=== PATIENT | male | born 2005 | race Caucasian/White ===

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

== ENCOUNTER 2024-07-13 10:03 | Emergency (ER) | payer OTHER, SELFPAY ==
--- NOTE | ~2024-07-13 | US_ITS ---
TESTICULAR ULTRASOUND (Doppler ultrasound interrogation techniques used as needed for this exam.) Ordering provider: Park Castellanos III, DO History: . pain . Comparison: None. FINDINGS: TESTICLES: Normal in size. The right measures 3.7x 2.5x 2.7 cm and the left measures 3.7x 2.1x 2.8 cm . Normal echogenicity bilaterally without mass lesion. Normal Doppler flow bilaterally. Appendix nestor tis is seen in the right side measuring 0.6 x 0.7 x 0.5 cm. EPIDIDYMIDES: Normal in size. The right measures 1.2 cm and the left 1.2 cm. Normal echogenicity bila terally. Both demonstrate normal Doppler flow. Cyst is seen in the right epididymis measuring 0.4 cm. HYDROCELE: None. VARICOCELE: None. OTHER ABNORMALITY: None seen. IMPRESSION: Right epididymal cyst. Otherwise, normal testicular ultrasound. Reviewed, dictated and finalized at location A. 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
[2024-07-13 10:15] VITALS: BP 160/98; PULSE 81; RESP 16; TEMP 36.8; O2SAT 100
[2024-07-13 11:12] VITALS: BP 125/75; PULSE 98; RESP 16; TEMP 36.9; O2SAT 100
[2024-07-13 11:19] LABS: Add Urine Microscopic? NO; Appearance Urine Clear (Clear); Bilirubin Urine Negative (Negative); Blood Urine Negative (Negative); Color Urine Yellow (Yellow); Glucose Urine UA Negative (Negative); Ketones Urine Negative (Negative); Leukocyte Esterase Ur Negative LEU/UL (Negative); Nitrate Urine Negative (Negative); Protein Urine Negative (Negative); Specific Grav Ur 1.009 (1.001-1.035); Urobilinogen Urine 0.2 mg/dL (<2.0)
--- NOTE | 2024-07-13 12:09 | ED_ITS ---
HPI - Male Genitourinary General Chief complaint: Urogenital-Male Stated complaint: testicular pain Time Seen by Provider: 07/13/24 10:27 History of Present Illness HPI Narrative: 18 y/o male presents with right testicular pain since this morning. patient denies trauma or injury to the groin. patient denies urinary symptoms, penile discharge or chance of STD's. patient has no other complaints. Onset (ago): hour(s) (5) Related Data Allergies Allergy/AdvReac Type Severity Reaction Status Date / Time amoxicillin Allergy Unknown Rash Verified 07/13/24 10:03 Review of Systems Review of Systems: All systems reviewed & are unremarkable except as noted in HPI and below Genitourinary: Genitourinary: Reports testicular pain PMFSH Past Medical History Medical History Hx of migraines Surgical History Surgical History No history of previous surgery Family History Family History Mother FH: migraines Grandparent Breast cancer Father Hypertension Social History Social History Smoking status: Never smoker Alcohol intake: never Substance use: current Substance use type: marijuana Living arrangements: with family Occupation/Education: student Gender identity (if verbalized by the patient): Male Exam Const: General: healthy appearing and no acute distress HENMT: Head: normal to inspection Eyes: Conjunctivae: conjunctivae normal Neck: Neck: normal visual inspection Chest: Chest palpation & inspection: normal inspection of the chest Resp: Effort & Inspection: normal respiratory effort Cardio: Rate: regular rate GI: GI Palp: Yes Soft to palpation : Other: patient already had US resulted prior to exam. patient denies any palpable mass or visiable issue Back/Spine/Pelvis: Back: no CVA tenderness Skin: General skin exam: normal color Neuro: General: patient oriented x3 Extrem: General: normal to inspection Psych: Mental Status: mental status grossly normal Course Course Emergency Course: patient had US of testicular that showed epididymal cyst. UA was negative Vital Signs Vital signs: Vital Signs Temperature 36.8 C 07/13/24 10:15 Pulse Rate 81 07/13/24 10:15 Respiratory Rate 16 07/13/24 10:15 Blood Pressure 160/98 H 07/13/24 10:15 Pulse Oximetry 100 07/13/24 10:15 Temperature 36.9 C 07/13/24 11:12 Pulse Rate 98 07/13/24 11:12 Respiratory Rate 16 07/13/24 11:12 Blood Pressure 125/75 07/13/24 11:12 Pulse Oximetry 100 07/13/24 11:12 MDM - Male Genitourinary MDM Narrative Medical decision making narrative: patient educated of epididymal cyst and gave urology referral as needed Lab Data Labs: Lab Results 07/13/24 Range/Units 11:10 Urine Color Yellow (Yellow) Urine Appearance Clear (Clear) Urine pH 7.0 (5.0-9.0) Ur Specific [place] 1.009 (1.001-1.035) Urine Protein Negative (Negative) mg/dL Urine Glucose (UA) Negative (Negative) mg/dL Urine Ketones Negative (Negative) mg/dL Ur Blood (Man) Negative (Negative) Urine Nitrate Negative (Negative) Urine Bilirubin Negative (Negative) Urine Urobilinogen 0.2 (<2.0) mg/dL Leukocyte Esterase Rfl Negative (Negative) ANTIONE/UL Imaging Data Radiologist's impression: small epididymal cyst to right testicle Discharge Plan Discharge Clinical Impression: Cyst of epididymis Patient Disposition: Home, Self-Care Condition: Stable Instructions: Antibiotic Form, Spermatocele (ED) Additional Instructions: TAKE NSAIDS FOR PAIN FOLLOW-UP WITH UROLOGIST NEEDED RETURN FOR WORSENING SYMPTOMS Patient Language: Armenian Follow-up/Referrals: Prabhu James MD [Physician] - ( NEEDED) Time of Disposition: 12:07
--- OUTSIDE RECORDS SUMMARY | 2024-07-20 15:20 | XMS_ITS | Encounter Summary ---
Author Organization [facility] Address [address] [place] [address] Care Team Providers Care Rehab Assistant Name Role Phone Beverly Louis MD Primary Care Provider [phone] Reason for Visit * Reason Comments Testicle Pain Started this morning . Hurts more on left. Walking is painful. Testicles look normal. Does not notice any change in size. Encounter Details Date Type Department Care Team (Late st Contact Info) Description 07/13/2024 9:15 AM MANAGEMENT EXPERT Office Visit [facility] Care at [address] [address] Talita Ernandez, DOOR CLAMP OPERATOR [address] [place] [address] [address] [place] [address] Testicular pain, left (Primary Dx) Social History Tobacco Use Types Packs/Day Years Used Date Smoking Tobacco: Never Smokeless Tobacco: Never Sex and Gender Information Value Date Recorded Sex Assigned at Not on file Legal Sex Male 1:41 AM MANAGEMENT EXPERT Gender Identity Not on file Sexual Orientation Not on file documented as of this encounter Last Filed Vital Signs Vital Sign Reading Time Taken Comments Blood Pressure 130/87 07/13/2024 9:05 AM MANAGEMENT EXPERT Pulse 71 07/13/2024 9:05 AM MANAGEMENT EXPERT Temperature 36.9 ??C (98.5 ??F) 07/13/2024 9:05 AM CS T Respiratory Rate 20 07/13/2024 9:05 AM MANAGEMENT EXPERT Oxygen Saturation 99% 07/13/2024 9:05 AM MANAGEMENT EXPERT Inhaled Oxygen Concentration - - Weight 76.4 kg (168 lb 8 oz) 07/13/2024 9:05 AM MANAGEMENT EXPERT Height - - Body Mass Index - - documented in this encounter Progress Notes * Talita Ernandez, DOOR CLAMP OPERATOR - 07/13/2024 9:15 AM CST Images from the original note were not included. Subjective/Objective Patient ID: Thong Parikh is a 18 y.o. male. Chief Complaint Testicle Pain (Started this morning. Hurts more on left. Walking is painful. Testicles look normal.Does not notice any change in size. ) Patient presents to the clinic with reports of testicle pain that started this morning. Patient reports he believes it hurts more in his left testicle than his right, but he does have pain bilaterally. Patient reports that his pain as an 8/10 and is a sharp pain. Denies fevers, abdominal pain, swelling to penis, drainage from penis, swelling to testicles, color change testicles, and injury to genitals. Patient denies any concern for STDs, he is sexually active but says he is monogamous and has no concerns and is refusing STD/UA testing in office. Patient reports that he is concerned for possible torsion, and would like more detailed testing to rule this out. He has taken no cncf-vmg-sazffriewzcfeijpbp for his symptoms. Review of Systems Constitutional: Negative for chills, fatigue and fever. Respiratory: Negative for cough. Cardiovascular: Negative for chest pain. Genitourinary: Positive for testicular pain. Negative for dysuria, genital sores, penile discharge,penile pain, penile swelling and scrotal swelling. Skin: Negative for rash. Neurological: Negative for weakness and headaches. Physical Exam Vitals reviewed. Constitutional: General: He is not in acute distress. Appearance: Normal appearance. He is not ill-appearing. HENT: Head: Normocephalic. Mouth/Throat: Lips: [place]. Cardiovascular: Rate and Rhythm: Normal rate. Pulmonary: Effort: Pulmonary effort is normal. Breath sounds: Normal breath sounds. Genitourinary: Comments: Pt declined exam as he wants an ultrasound. Skin: General: Skin is warm. Neurological: Mental Status: He is alert and oriented to person, place, and time. Psychiatric: Mood and Affect: Mood normal. Vitals: 07/13/24 0905 BP: 130/87 Pulse: 71 Resp: 20 Temp: 36.9 ??C (98.5 ??F) TempSrc: Oral SpO2: 99% Weight: 76.4 kg (168 lb 8 oz) Assessment/Plan --Patient is going to go the ER for more advanced testing (ultrasound) of his testicular pain to rule out torsion. Patient reports that this is his concern and he would like this ruled out, discussedwith patient that the CC is unable to order this test. Patient declines STI and urine testing whilein office. Patient verbalized that he will drive himself to [facility], EMS declined. Diagnoses and all orders for this visit: Testicular pain, left (Primary) Patient Education: --TO THE ER Disposition Treatment plan including expectations, follow up, and return precautions discussed with patient/parent, verbalizes understanding. Medication dosage, use, and potential adverse reactions discussed with patient/parent. Advised to follow up with PCP if symptoms do not resolve as expected or sooner if condition worsens. Signs/symptoms warranting ER evaluation reviewed. Patient and/or guardian was given an opportunity to ask questions, questions answered. Talita Ernandez NP 07/13/24 9:24 AM This office note has been partially dictated using Extreme DA software, and as a result portions of the record may have been created with this software. Occasional wrong-word or 'xihde-y-hdco' substitutions may have occurred due to the inherent limitations of voice recognition software. Read the chartcarefully and recognize, using context, where substitutions have occurred. Cosigned by Jett Cabrera MD at 07/13/2024 11:48 PM MANAGEMENT EXPERT GEMENT EXPERT GEMENT EXPERT documented in this encounter Plan of Treatment Not on file documented as of this encounter Visit Diagnoses Diagnosis Testicular pain, left- Primary Unspecified disorder of male genital organs documented in this encounter Care Teams Rehab Assistant Relationship Specialty Start Date End Date Beverly Louis MD [address] [place] [address] PCP - General 08/07/17 documented as of this encounter
--- OUTSIDE RECORDS SUMMARY | 2024-07-20 15:20 | XMS_ITS | Clinical Summary ---
Author Organization [facility] Address [address] [place] [address] Care Team Providers Care Friction Paint Machine Tender Name Role Phone Beverly Louis MD Primary Care Provider [phone] Source Comments [facility],non-owned Affiliates and Associated Physician Practices is amultiple site organization consisting of ambulatory clinics and hospital sitesin [place], [place], [place] and [place]. This disclosure is being madepursuant to the Care Everywhere program and may not contain all information available regarding this patient. Last updated 18.[facility] Allergies Active Allergy Reactions Criticality Noted Date Comments Amoxicillin Rash Medium 07/31/2019 Medications * Be aware that medications may not be up to date on this document. Alwaysverify current medications with the patient. Medication Sig Dispensed Refills Start Date End Date Status meloxicam (MOBIC) 15 MG tablet Take 1 tablet by mouth once daily 30 tablet 3 07/31/2019 Active meloxicam (MOBIC) 15 MG tablet Take 1 tablet by mouth once daily 30 tablet 3 07/31/2019 Active Active Problems Problem Noted Date Diagnosed Date Chronic hip pain, right 07/30/2019 Social History Tobacco Use Types Packs/Day Years Used Date Smoking Tobacco: Never Assessed Sex and Gender Information Value Date Recorded Sex Assigned at Not on file Gender Identity Not on file Sexual Orientation Not on file Last Filed Vital Signs Vital Sign Reading Time Taken Comments Blood Pressure - - Pulse - - Temperature - - Respiratory Rate - - Oxygen Saturation - - Inhaled Oxygen Concentration - - Weight 59 kg (130 lb 1.1 oz) 07/31/2019 2:48 PM SAT MATH TUTOR Height 171.6 cm (5' 7.56 ) 07/31/2019 2:48 PM CS T Body Mass Index 20.04 07/31/2019 2:48 PM SAT MATH TUTOR Body Mass Index Percentile 54.34% 07/31/2019 2:4 8 PM SAT MATH TUTOR Growth Chart: CDC (Boys, 2-2 0 Years) Plan of Treatment Health Maintenance Due Date Last Done Comments HIV SCREENING 2019 HPV VACCINE (1 - Male 3-dose series) 2019 HEPATITIS C SCREENING 09/09/2022 DEPRESSION SCREENING 07/29/2023 DTAP/TDAP/TD VACCINES (1 - Tdap) 2023 HEPATITIS B VACCINE (1 of 3 - 19+ 3-dose series) 2023 COVID-19 VACCINE (1 - 2023-2 5 season) 2024 INFLUENZA VACCINE (#1) 2024 ZOSTER VACCINE (1 of 2) 2054 HIB VACCINE Aged Out No longer eligi ble based on patient's age to complete this topic MENINGOCOCCAL VACCINE Aged Out No santana emily eligible based on patient's age to complete this topic PNEUMOCOCCAL VACCINE Aged Out No long er eligible based on patient's age to complete this topic Care Teams Friction Paint Machine Tender Relationship Specialty Start Date End Date Beverly Louis MD [facility] [address] [place] [address] PCP - General Pediatrics 06/25/16
--- OUTSIDE RECORDS SUMMARY | 2024-07-20 15:20 | XMS_ITS | Referral Summary ---
Author Organization [facility] Address [address] [place] [address] Care Team Providers Care Supervisor Fusing Room Name Role Phone Beverly Louis MD Primary Care Provider [phone] Encounters Date Type Department Care Team Description 07/13/2024 9:15 AM CLINICAL PROJECT MANAGER Office Visit [facility] Convenient Care at [address] [address] Talita Ernandez NP Testicular pain, left (Primary Dx) from Last 3 Months Allergies Active Allergy Reactions Criticality Noted Date Comments Amoxicillin Rash Medium Medications prochlorperazin e (COMPAZINE) 10 mg tablet Give 1 tablet (10 mg) along with OTC Benadryl 25 mg every 6 hours PRN migraine. Also give Aleve 440 mg OTC every 12 hours PRN headache. 10 tablet 2 Active diphenhydrAMINE (BENADRYL) 25 mg capsule Take OTC 1 benadryl (25 mg) along with 1 Compazine 10 mg every 6 hours PRN headache. Also take Aleve 440 mg. May repeat every 12 hours. 10 tablet/capsul e 2 Active naproxen (Aleve) 220 mg tablet Take 2 tablets (440 mg) every 12 hours. Also take 1 Compazine 10 mg and Benadryl 25 mg every 6 hours PRN as headache cocktail. 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 Pain of hand 01/09/2013 Social History Tobacco Use Types Packs/Day Years Used Date Smoking Tobacco: Never Smokeless Tobacco: Never Sex and Gender Information Value Date Recorded Sex Assigned at Not on file Legal Sex Male 1:41 AM CLINICAL PROJECT MANAGER Gender Identity Not on file Sexual Orientation Not on file Last Filed Vital Signs Vital Sign Reading Time Taken Comments Blood Pressure 130/87 07/13/2024 9:05 AM CLINICAL PROJECT MANAGER Pulse 71 07/13/2024 9:05 AM CLINICAL PROJECT MANAGER Temperature 36.9 ??C (98.5 ??F) 07/13/2024 9:05 AM CS T Respiratory Rate 20 07/13/2024 9:05 AM CLINICAL PROJECT MANAGER Oxygen Saturation 99% 07/13/2024 9:05 AM CLINICAL PROJECT MANAGER Inhaled Oxygen Concentration - - Weight 76.4 kg (168 lb 8 oz) 07/13/2024 9:05 AM CLINICAL PROJECT MANAGER Height 164 cm (5' 4.57 ) 02/17/2018 9:33 AM CDT Body Mass Index - - Plan of Treatment Not on file Insurance [facility] HMO/PPO Address: [facility] [address] [place] [address] [facility] CHOICE PLUS [facility] HMO/PPO Address: [place] [address] Care Teams Supervisor Fusing Room Relationship Specialty Start Date End Date Beverly Louis MD [address] [place] [address] PCP - General 08/07/17
--- OUTSIDE RECORDS SUMMARY | 2024-07-20 15:20 | XMS_ITS | Encounter Summary ---
Author Organization [facility] Address [address] [facility] [address] [place] [address] Phone Care Team Providers Care Jai Alai Player Name Role Phone Beverly Louis MD Primary Care Provider [phone] Reason for Visit * Consultation (Routine) - Closed Specialty Diagnoses / Procedures Referred By Huong burns Referred To Contact Pediatric Neurology Diagnoses Other headache syndrome Beverly Louis MD [address] [place] [address] Phone: tel: fax: [facility] Pediatric Neurology [address] [facility] [address] [place] [address] Phone: tel: fax: Referral ID Status Reason Start Date Expiration Date V isits Requested Visits Authorized [id number] Closed Specialty Services Required 10/05/2019 04/15/2021 1 1 Encounter Details Date Type Department Care Team (Late st Contact Info) Description 01/01/2020 2:00 PM CDT Office Visit [facility] Pediatric Neurology [address] [facility] [address] [place] [address] Apollo Childs MD [address] [facility] [id number] [place], [place] [id number] Migraine without aura and without status migrainosus, not intractable (Primary Dx); Other headache syndrome Social History Tobacco Use Types Packs/Day Years Used Date Smoking Tobacco: Never Smokeless Tobacco: Never Sex and Gender Information Value Date Recorded Sex Assigned at Not on file Legal Sex Male 1:41 AM WINDOW AND SIDING CRAFTSMAN Gender Identity Not on file Sexual Orientation Not on file documented as of this encounter Last Filed Vital Signs Vital Sign Reading Time Taken Comments Blood Pressure 118/72 01/01/2020 2:50 PM CDT Pulse - - Temperature - - Respiratory Rate - - Oxygen Saturation - - Inhaled Oxygen Concentration - - Weight 63.3 kg (139 lb 9.6 oz) 01/01/2020 2:50 P M CDT Height - - Body Mass Index - - documented in this encounter Ordered Prescriptions Prescription Sig Dispense Quantity Refills Last Filled Start Date End Date rizatriptan (MAXALT) 5 mg tabletIndications: Migraine Take 1 tablet (5 mg total) by mouth once as needed for migraine May repeat in 2 hours if unresolved. Do not exceed 30 mg in 24 hours. 9 tablet 3 01/01/2020 1 documented in this encounter Progress Notes * Apollo Childs MD - 01/01/2020 2:[address] Missy MD, Thank you for referring Thong Parikh to the [facility] Pediatric Neurology Clinic forinitial evaluation of headaches. Today he was accompanied by his mother who helped to provide the history. HPI: Thong is a 14 year old boy without significant history presenting for evaluation of headaches. He has had headaches for the past several years. He feels that for the last 6 months the headaches have occurred almost every day. He has two major types of headache. The first is a daily all the time dull headache. These headaches are low intensity constant aches. They do not prevent him from participating in any activity. The second type of headache is more severe and occurs a few times per week. He has not missed school or other activities because of the headaches. The headaches have prevented him from performing at his best in school at times as he finds it hard to focus with a headache. A ty pical severe headache is characterized by severe throbbing pain with light sensitivity, sound sensitivity. He does not endorse nausea or vomiting. He denies focal neurologic symptoms with the headache. He has had an optometric examination within a year and was prescribed corrective lenses, however wearing these seemed to cause more headaches. The headaches do not wake Thong from sleep in the middle of the night. There is no specific time ofday when they are worse. The headaches are mostly frontal and to the top of his head. He denies occipital headaches and laugh/cough/sneeze headaches. There are no focal neurologic symptoms to his headaches. Triggers for headaches have not been identified. He sleeps 8 - 9 hours of sleep per night, sometimes more. He is typically refreshed in the morning. However during the school year he reports getting about 5 hours of sleep per night. He is physically active. He does not drink much water during the day. He has a good appetite and eats regularly throughout the day. Past Medical History: Diagnosis Date ??? Headache History reviewed. No pertinent surgical history. Medications: No current outpatient medications on file. Allergies: Allergies Allergen Reactions ??? Amoxicillin Rash Family History Problem Relation Age of Onset ??? No Known Problems Mother ??? No Known Problems Father Social History: Social History Social History Narrative Thong is going into the 10th grade at [employer]. He participates in wrestling. Review of Systems: A complete [facility] Child Neurology Review of Systems form was filled out by the patient's family on 01/01/2020 and reviewed at the visit by Dr. Childs. It is significant for headache and otherwise negative except as documented in the HPI. The ROS form is scanned intothe medical record. Physical Exam: Vitals: 01/01/20 1450 BP: 118/72 Weight: 63.3 kg (139 lb 9.6 oz) General Exam: General physical examination including evaluation of appearance, HEENT exam, lungs, cardiac exam, extremities, and skin were unremarkable. Neurologic Exam: Patient was alert and oriented. Mental status was normal. Speech and language were normal. Cranial nerves II-XII including funduscopic examination were normal. Muscle strength was 5/5 in all muscle groups tested, light tactile sensation was normal, coordination with slxotd-begh-pwbjos testing, deeptendon reflexes, and gait were normal as well. Lab/Radiology/Diagnostic Review: No pertinent labs Assessment: (G43.009) Migraine without aura and without status migrainosus, not intractable (primary encounter diagnosis) Plan: rizatriptan (MAXALT) 5 mg tablet (G44.89) Other headache syndrome Plan: Ambulatory referral to Pediatric Neurology Discussion: Thong is a 14-year-old boy with headaches. He has features of tension headache which occurs chronically as well as episodic severe headache which has features of migraine. He qualifies for a diagnosis of episodic migraine headache without aura. His neurologic examination is normal and there are no red flag symptoms for elevated intracranial pressure. For this reason I did not recommend any neurologic imaging at this time. We discussed prevention of headaches as well as acute treatment. At this time, because he is having frequent headaches and they are making it difficult for him to perform athis best in school, I suggested prevention with magnesium, coenzyme Q10, and/or riboflavin. We alsodiscussed the importance of proper sleep, diet, and exercise. For acute treatment of his headaches,I suggested dosing recommendations for lcax-ehs-pbjpxvn medications such as ibuprofen, acetaminophen, or caffeine containing preparations. For severe headaches which are consistent with migraines, I did provide a prescription for Maxalt 5 mg to take at the onset. Recommendations: 1. Maxalt 5 mg p.r.n. severe migraine headache 2. Provided dosing recommendations for pgre-uuh-ayqmnyo analgesics 3. Discussed for headache hygiene?? as well as the possibility of medication overuse headache 4. Recommended vitamin supplementation for headache prevention 5. Follow-up in 6 months Thank you, Dr. Beverly Louis, for allowing me to participate in the care of your patient. Should you have any questions about the diagnosis or management, please contact our office at . Sincerely, Apollo Childs MD Total visit time was 60 minutes, more than half of which was spent counseling and answering the patient and his parents' questions. documented in this encounter Plan of Treatment Not on file documented as of this encounter Visit Diagnoses Diagnosis Migraine without aura and without status migrainosus, not intractable- Primary Other headache syndrome documented in this encounter Orders Outpatient Referral Count Last Ordered Date Fir st Ordered Date AMB REFERRAL TO PEDIATRIC NEUROLOGY 1 12/31 documented in this encounter Care Teams Jai Alai Player Relationship Specialty Start Date End Date Beverly Louis MD [address] [place] [address] PCP - General 08/07/17 documented as of this encounter
--- OUTSIDE RECORDS SUMMARY | 2024-07-20 15:20 | XMS_ITS | Encounter Summary ---
Author Organization [facility] Address [address] [facility] [place] [address] Care Team Providers Care Patient Care Technician Name Role Phone Beverly Louis MD Primary Care Provider [phone] Encounter Details Date Type Department Care Team (Late st Contact Info) Description 07/31/2019 2:53 PM INTELLECTUAL PROPERTY PARALEGAL - 07/31/2019 11:59 PM INTELLECTUAL PROPERTY PARALEGAL Hospital Encounter [facility] Pediatrics - Radiology [address] [place] [address] [place] [address] [place] [address] [place] [address] Discharge Disposition: Home or Self Care Social History Tobacco Use Types Packs/Day Years Used Date Smoking Tobacco: Never Assessed Sex and Gender Information Value Date Recorded Sex Assigned at Not on file Gender Identity Not on file Sexual Orientation Not on file documented as of this encounter Medications at Time of Discharge Medication Sig Dispensed Refills Start Date End Date meloxicam (MOBIC) 15 MG tablet Take 1 tablet by mouth once daily 30 tablet 3 07/31/2019 meloxicam (MOBIC) 15 MG tablet Take 1 tablet by mouth once daily 30 tablet 3 07/31/2019 documented as of this encounter Plan of Treatment Not on file documented as of this encounter Procedures Procedure Name Priority Date/Time Associated Diagnosis Comments XR PELVIS 1 OR 2VW Routine 07/31/2019 2: 58 PM INTELLECTUAL PROPERTY PARALEGAL Chronic hip pain, right documented in this encounter Results * XR AP PELVIS 1 VIEW (07/31/2019 2:58 PM INTELLECTUAL PROPERTY PARALEGAL) Anatomical Region Laterality Modality Pelvis Radiographic Annika ging 07/31/2019 3:19 PM INTELLECTUAL PROPERTY PARALEGAL Impressions 07/31/2019 3:22 PM INTELLECTUAL PROPERTY PARALEGAL Normal radiographic examination of the pelvis. Reading Radiologist: NIKKO HUNTER MD on 07/31/2019 at 3:22 PM Narrative 07/31/2019 3:22 PM INTELLECTUAL PROPERTY PARALEGAL CLINICAL HISTORY: Pain in right hip COMPARISON: None PROCEDURE: Single view of the pelvis FINDINGS: Hip alignment is normal. ??Proximal femoral physes are nearly fused. ??No visible fracture, apophyseal avulsion injury, or other acute abnormality. ??No aggressive lytic or sclerotic bone lesion. Procedure Note Nikko Hunter MD - 07/31/2019 CLINICAL HISTORY: Pain in right hip COMPARISON: None PROCEDURE: Single view of the pelvis FINDINGS: Hip alignment is normal. Proximal femoral physes are nearly fused. No visible fracture, apophyseal avulsion injury, or other acute abnormality. No aggressive lytic or sclerotic bone lesion. IMPRESSION Normal radiographic examination of the pelvis. Reading Radiologist: NIKKO HUNTER MD on 07/31/2019 at 3:22 PM Terrell Patterson MD DIAGNOSTIC IMAGING O RDERABLES documented in this encounter Visit Diagnoses Diagnosis Chronic hip pain, right documented in this encounter Care Teams Patient Care Technician Relationship Specialty Start Date End Date Beverly Louis MD [address] [place] [address] [address] [place] [address] PCP - General Pediatrics 06/25/16 documented as of this encounter
--- OUTSIDE RECORDS SUMMARY | 2024-07-20 15:20 | XMS_ITS | Encounter Summary ---
Author Organization [facility] Address [address] [place] [address] Care Team Providers Care Manager Study Name Role Phone Beverly Louis MD Primary Care Provider [phone] Reason for Visit * Reason Onset Date Comments Appointment 08/17/2019 Encounter Details Date Type Department Care Team (Late st Contact Info) Description 08/17/2019 Telephone [facility] Pediatrics - Orthopedics [address] [place] [address] Terrell Patterson MD [address] [facility] [place] [address] Appointment Social History Tobacco Use Types Packs/Day Years Used Date Smoking Tobacco: Never Assessed Sex and Gender Information Value Date Recorded Sex Assigned at Not on file Gender Identity Not on file Sexual Orientation Not on file documented as of this encounter Plan of Treatment Not on file documented as of this encounter Visit Diagnoses Not on filedocumented in this encounter Care Teams Manager Study Relationship Specialty Start Date End Date Beverly Louis MD [address] [place] [address] [address] [place] [address] PCP - General Pediatrics 06/25/16 documented as of this encounter
--- OUTSIDE RECORDS SUMMARY | 2024-07-20 15:20 | XMS_ITS | Encounter Summary ---
Author Organization 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 No / Unsure 10/16/2019 10:46 AM CDT documented as of this encounter Plan of Treatment Not on file documented as of this encounter Visit Diagnoses Not on filedocumented in this encounter Care Teams Emergency Medical Tech Relationship Specialty Start Date End Date Beverly Louis MD [address] [place] [address] PCP - General 08/07/17 documented as of this encounter
--- OUTSIDE RECORDS SUMMARY | 2024-07-20 15:20 | XMS_ITS | Encounter Summary ---
Author Organization 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 Gender Identity Not on file Sexual Orientation Not on file documented as of this encounter Last Filed Vital Signs Vital Sign Reading Time Taken Comments Blood Pressure - - Pulse - - Temperature - - Respiratory Rate - - Oxygen Saturation - - Inhaled Oxygen Concentration - - Weight 24.5 kg (54 lb 0.2 oz) 01/01/2013 2:38 PM CDT Height - - Body Mass Index - - documented in this encounter Plan of Treatment Not on file documented as of this encounter Procedures Procedure Name Priority Date/Time Associated Diagnosis Comments SERUM C-REACTIVE PROTEIN, HIGH SENSITIVITY Routine 01/01/2013 3:18 PM CDT BLOOD ERYTHROCYTE SEDIMENTATION RATE (ESR) Routine 01/01/2013 3:18 PM CDT BLOOD CELL MORPHOLOGIC EXAM Routine 01/01/2013 3:18 PM CDT BLOOD CELL COUNT (CBC) Routine 3 3:18 PM CDT documented in this encounter Results * Serum C-reactive protein, high sensitivity (01/01/2013 3:18 PM CDT) C-RP, high sensitivity 1.3 <=10.0 mg/L HISTORICAL RESULTS Comment: Interpretive Data Values >10 mg/L are indicative of inflammation. No ranges have been established for assessment of cardiac disease risk in children. High risk (>3.0 mg/L), average risk (1.0-3.0 mg/L), and low risk (<1.0 mg/L)tertiles have been established for evaluation of cardiac disease risk in adults (Circulation 2003; 107:499-511). Current interpretive data was last revised on 2009. Serum 01/01/2013 3:18 PM CDT Historical Provider LAB BLOOD ORDERABLES Renea l Result Performing Organization Address City/[facility] de Phone Number HISTORICAL RESULTS * Blood cell count (CBC) (01/01/2013 3:18 PM CDT) WBC 8.4 4.5 - 13.5 K/cumm HISTORICAL RESULTS RBC 4.59 4.00 - 5.20 M/cumm HISTORICAL RESULTS Hgb 12.7 11.5 - 15.5 g/dl HISTORICAL RESULTS Hct 36.3 35.0 - 45.0 % HISTORICAL RESULTS MCV 79.1 77.0 - 95.0 fl HISTORICAL RESULTS MCH 27.7 25.0 - 33.0 pg HISTORICAL RESULTS MCHC 35.0 32.7 - 35.5 g/dl HISTORICAL RESULTS Rdw 12.2 11.8 - 14.6 % HISTORICAL RESULTS Platelets 276 140 - 440 K/cumm HISTORICAL RESULTS MPV 10.0 8.1 - 11.9 fl HISTORICAL RESULTS NRBC 0.0 #/100 WBC HISTORICAL RESULTS Blood specimen (specimen) 01/01/2013 3:18 PM CDT Historical Provider LAB BLOOD ORDERABLES Renea l Result Performing Organization Address [facility] Co de Phone Number HISTORICAL RESULTS * Blood erythrocyte sedimentation rate (ESR) (01/01/2013 3:18 PM CDT) Erythrocyte sedimentation rate 18.0 0.0 - 20.0 mm/hr HISTORICAL RESULTS Blood specimen (specimen) 01/01/2013 3:18 PM CDT Historical Provider LAB BLOOD ORDERABLES Renea l Result Performing Organization Address [facility] de Phone Number HISTORICAL RESULTS * (ABNORMAL) Blood cell morphologic exam (01/01/2013 3:18 PM CDT) Neutrophils 70 33 - 70 % HISTORIC AL RESULTS Lymphocytes 19(L) 21 - 55 % HISTORIC AL RESULTS Monos 7 3 - 13 % HISTORICAL RESULTS Eosinophils 3 2 - 12 % HISTORIC AL RESULTS Basophils 1 0 - 3 % HISTORICAL RESULTS WBC counted 100 # of cells HISTORI PAULINE RESULTS Platelet estimate Adequate Adequate HISTORICAL RESULTS Blood specimen (specimen) 01/01/2013 3:18 PM CDT Historical Provider LAB BLOOD ORDERABLES Renea l Result Performing Organization Address [facility] Co de Phone Number HISTORICAL RESULTS documented in this encounter Visit Diagnoses Diagnosis Swelling of limb Open wound of hand Dog bite Unspecified place of occurrence documented in this encounter
--- OUTSIDE RECORDS SUMMARY | 2024-07-20 15:20 | XMS_ITS | Encounter Summary ---
Author Organization [facility] Address [address] [facility] [place] [address] Care Team Providers Care Automation And Controls Instructor Name Role Phone Beverly Louis MD Primary Care Provider [phone] Reason for Visit * Reason Comments Pain Groin Encounter Details Date Type Department Care Team (Late st Contact Info) Description 07/31/2019 2:45 PM ARC WELDING MACHINE OPERATOR - 07/31/2019 2:52 PM ARC WELDING MACHINE OPERATOR Hospital Encounter [facility] Pediatrics - Orthopedics [address] [place] [address] Terrell Patterson MD [facility] [facility] [place] [address] Discharge Disposition: Home or Self Care Social [...] (130 lb 1.1 oz) 07/31/2019 2:48 PM ARC WELDING MACHINE OPERATOR Height 171.6 cm (5' 7.56 ) 07/31/2019 2:48 PM CS T Body Mass Index 20.04 07/31/2019 2:48 PM ARC WELDING MACHINE OPERATOR Body Mass Index Percentile 54.34% 07/31/2019 2:4 8 PM ARC WELDING MACHINE OPERATOR Growth Chart: [facility] (Boys, 2-2 0 Years) documented in this encounter Discharge Instructions * Patient Instructions* Terrell Patterson MD - 07/31/2019 3:37 PM ARC WELDING MACHINE OPERATOR Images from the original note were not included. Adult and Pediatric Sports Medicine Thong Parikh 07/31/2019 Thank you for coming in to see us today for your hip. This is a school/work excuse note for today. We recommend that you try the following for your injury: icing, tylenol, anti-inflammatory medications and physical therapy exercises Please contact us at option #1 to make an appointment if your symptoms are not improving, or if something about your condition significantly changes. *Please fill out the Press [employer] survey that will be sent to you.* [facility] Orthopaedic office contact information: [facility] [address] [place] [address] [facility] (option #3) [address] [facility], 2nd floor, [place] [address] [facility] [address] [place]. [address] [facility] [address] [facility], [place], [place] [address] Please do not hesitate to contact me with questions regarding him or any other patient in the future. Our clinical nurse, Hailee Carrasquillo, can be reached at . Sincerely, Terrell Patterson MD Team Physician for the [facility] [email or web address] WELDING MACHINE OPERATOR documented in this encounter Progress Notes * Terrell Patterson MD - 07/31/2019 3:37 PM CST Images from the original note were not included. Terrell Patterson MD [facility] Orthopaedic Sports Medicine Adult and Pediatric Date of Clinic Visit: 07/31/[address] Beverly Louis MD ; Today we had the pleasure of seeing Thong Parikh in Orthopaedic Sports Medicine Clinic for evaluation of his right hip injury. Thong Parikh is a 13 year old male who has 3 weeks of right hip anterior pain with wrestling ([place], wrestling, freshman). The symptoms are activity- related and improved with rest. No fevers,chills, numbness, paresthesias or gross motor weakness. They have tried icing, anti-inflammatory medications, activity modification and rehab with life trainer for their symptoms. SANE Score (0-100): SANE Score 07/31/2019 Right Hip Score 40 Medications No current outpatient medications on file prior to encounter. No current facility-administered medications on file prior to encounter. Allergies as of 07/31/2019 - Reviewed 07/31/2019 Allergen Reaction Noted ??? Amoxicillin Rash 07/31/2019 No past medical history on file. No past surgical history on file. 14 Point review of systems was otherwise negative as reviewed today. Social History Tobacco Use ??? Smoking status: Not on file Substance and Sexual Activity ??? Alcohol use: Not on file ??? Drug use: Not on file ??? Sexual activity: Not on file Family History No family history on file. Otherwise reviewed and non-contributory Physical Exam: Ht 5' 7.56 (171.6 cm) Wt 130 lb 1.1 oz (37041 g) BMI 20.04 kg/m2 The patient is awake, alert, oriented and they are pleasant to speak with. Gait is normal. There was a negative straight leg raise bilaterally. Evaluation of the uninjured left hip noted no skin lesions, neurovascularly intact. There was no tenderness/swelling/deformity. Ligamentously stable. Painless hip range of motion. No snapping. Negative impingement. The right lower extremity is neurovascularly intact with no active skin lesions. There is no swelling. There is inguinal. There is painless hip internal rotation. There is painless hip external rotation. Anterior impingement test is positive. Posterior impingment is positive. Flexion subspine impingement test is positive. There is no hip laxity. There is no snapping with hip active and passive circumduction. There is no pain with shucking the hip. There is no pain with logrolling the hip. Thereis no pain during an abdominal crunch. There is no pain during an abdominal crunch with resisted hip adduction. Imaging: hip X-rays images reviewed by me are positive for bilateral prominent AIIS. Impression: Right hip flexor strain, possible AIIS impingement Plan: We recommended that they try the following to treat their injury: icing, tylenol, physical therapy exercises, activity modification and meloxicam. He will follow-up in 4 weeks and does not need new xrays. Please do not hesitate to contact me with questions regarding him or any other patient in the future. Our clinical nurse, can be reached at . Sincerely, Terrell Patterson MD WELDING MACHINE OPERATOR * Tressa Howe - 07/31/2019 2:49 PM CST - Reason for visit: groin pain - When & How it happened: 2 weeks ago, wrestling - Where & how was it treated: none - Pain level 7 out of 10 WELDING MACHINE OPERATOR documented in this encounter Plan of Treatment Not on file documented as of this encounter Procedures Procedure Name Priority Date/Time Associated Diagnosis Comments XR PELVIS 1 OR 2VW Routine 07/31/2019 2: 58 PM ARC WELDING MACHINE OPERATOR Chronic hip pain, right documented in this encounter Results * XR AP PELVIS 1 VIEW (07/31/2019 2:58 PM ARC WELDING MACHINE OPERATOR) Anatomical Region Laterality Modality Pelvis Radiographic Annika ging 07/31/2019 3:19 PM ARC WELDING MACHINE OPERATOR Impressions 07/31/2019 3:22 PM ARC WELDING MACHINE OPERATOR Normal radiographic examination of the pelvis. Reading Radiologist: NIKKO HUTNER MD on 07/31/2019 at 3:22 PM Narrative 07/31/2019 3:22 PM ARC WELDING MACHINE OPERATOR CLINICAL HISTORY: Pain in right hip COMPARISON: [...] encounter Visit Diagnoses Diagnosis Chronic hip pain, right- Primary Chronic hip pain, right documented in this encounter Care Teams Automation And Controls Instructor Relationship Specialty Start Date End Date Beverly Louis MD [facility] [address] [place] [address] PCP - General Pediatrics 06/25/16 documented as of this encounter
--- OUTSIDE RECORDS SUMMARY | 2024-07-20 15:20 | XMS_ITS | Encounter Summary ---
Author Organization [facility] Address [address] [place] [address] Phone Care Team Providers Care Industrial Radiographer Name Role Phone Beverly Louis MD Primary Care Provider [phone] Reason for Visit * Reason Comments Follow-up Warts Encounter Details Date Type Department Care Team (Late st Contact Info) Description 01/13/2018 9:00 AM CDT Office Visit [facility] Dermatology [address] [facility] [address] [place] [id number] Alycia Mccallum MD [address] [place], [place] [id number] Other viral warts (Primary Dx) Social History Tobacco Use Types Packs/Day Years Used Date Smoking Tobacco: Never Sex and Gender Information Value Date Recorded Sex Assigned at Not on file Legal Sex Male 1:41 AM RN DOCUMENT IMPROVEMENT SPECIALIST Gender Identity Not on file Sexual Orientation Not on file documented as of this encounter Last Filed Vital Signs Vital Sign Reading Time Taken Comments Blood Pressure - - Pulse - - Temperature - - Respiratory Rate - - Oxygen Saturation - - Inhaled Oxygen Concentration - - Weight 51.2 kg (112 lb 14 oz) 01/13/2018 9:16 AM CDT Height 163 cm (5' 4.17 ) 01/13/2018 9:16 AM CDT Body Mass Index 19.27 01/13/2018 9:16 AM CDT Body Mass Index Percentile 58.97% 01/13/2018 9:1 6 AM CDT Growth Chart: CDC (Boys, 2-2 0 Years) documented in this encounter Progress Notes * Alycia Mccallum MD - 01/13/2018 9:00 AM CDT PATIENT NAME: THONG JENKINS : 2005 REGINALDO: 01/13/2018 Treatment #4 (2nd with Squaric acid) - Last treated on 11/18/2017 for 2 VV lesions using intralesional alli antigen 0.2 mL - Location: Left hip and R3 and R4 PIP joint - No rash with medicine since last visit - Noted improvement and thinning of warts - Otherwise, no other complaints at this time Procedure: Destruction of Benign Lesion(s) Risk of pain and blistering were reviewed with the family. Verbal consent was obtained. Diagnosis: Verruca Vulgaris. Method: Squaric acid 5% with occlusion and LN2 cryotherapy for 10 seconds x2 FTC Number of lesions: 1 Location(s): L4 PIP joint Complications: None. Blister care was reviewed with family. RTC 4-6 weeks ATTESTATION By signing my name, I, Robbin Apple, attest that this documentation has been prepared under the direction and in the presence of Dr. Mccallum 01/13/2018 I personally performed the services described in this documentation, reviewed and edited the documentation which was dictated to the scribe in my presence, and it accurately records my words and actions. Alycia Mccallum MD 01/13/2018 12:40 PM documented in this encounter Plan of Treatment Not on file documented as of this encounter Visit Diagnoses Diagnosis Other viral warts- Primary documented in this encounter Care Teams Industrial Radiographer Relationship Specialty Start Date End Date Beverly Louis MD [address] [place] [address] PCP - General 08/07/17 documented as of this encounter
--- OUTSIDE RECORDS SUMMARY | 2024-07-20 15:20 | XMS_ITS | Encounter Summary ---
Author Organization [facility] Address [address] [place] [place] [address] Phone Care Team Providers Care Technology Project Manager Name Role Phone Beverly Louis MD Primary Care Provider [phone] Encounter Details Date Type Department Care Team (Late st Contact Info) Description 11/30/2021 2:00 PM CDT Office Visit [facility] Pediatric Neurology [address] [facility] [address] [place] [address] Apollo Childs MD [address] [facility] [id number] [place] [address] Migraine without aura and without status migrainosus, not intractable (Primary Dx) Social History Tobacco Use Types Packs/Day Years Used Date Smoking Tobacco: Never Smokeless Tobacco: Never Sex and Gender Information Value Date Recorded Sex Assigned at Not on file Legal Sex Male 1:41 AM CARE WORKER Gender Identity Not on file Sexual Orientation Not on file documented as of this encounter Last Filed Vital Signs Vital Sign Reading Time Taken Comments Blood Pressure 112/74 12/01/2021 10:57 AM CDT Pulse - - Temperature - - Respiratory Rate - - Oxygen Saturation - - Inhaled Oxygen Concentration - - Weight - - Height - - Body Mass Index - - documented in this encounter Ordered Prescriptions Prescription Sig Dispense Quantity Refills Last Filled Start Date End Date ZOLMitriptan (Zomig) 5 mg nasal solutionIndication s:Migraine Administer 1 spray into one nostril as needed for migraine May repeat x 1 if no relief in 2 hours 6 mL 5 11/30/2021 documented in this encounter Progress Notes * Apollo Childs MD - 11/30/2021 2:00 PM CDT Thong Parikh returned for follow-up evaluation of headaches. Today he was accompanied by his mother. HPI: Thong is a 16 year old boy without significant history presenting for evaluation of headaches. He has had headaches for the past several years. I saw him last in clinic in December of 2019. At that time he was having sporadic headaches that were severe as well as low intensity constant headaches. Severe headaches tend to occur 1 time per month, sometimes more. The headaches were accompanied by light sensitivity and sound sensitivity. He did take Maxalt 5 mg at the onset of a headache but he did notfeel that it was helpful. He has not tried other medications for headache. The headaches do not wake Thong from [...] He is typically refreshed in the morning. He is physically active. He does not drink much water during the day. He has a good appetite and eats regularly throughout the day. Past Medical History: Diagnosis Date ??? Headache No past surgical history on file. Medications: Current Outpatient Medications: ??? diphenhydrAMINE (BENADRYL) 25 mg capsule ??? naproxen (Aleve) 220 mg tablet ??? prochlorperazine (COMPAZINE) 10 mg tablet ??? rizatriptan (MAXALT) 5 mg tablet Allergies: Allergies Allergen Reactions ??? Amoxicillin Rash Family History Problem Relation Age of Onset ??? Migraines Mother ??? No Known Problems Father ??? Migraines Maternal Grandmother Social History: Social History Social History Narrative Thong is going into the 10th grade at [employer]. He participates in wrestling. Review of Systems: A complete [facility] Child Neurology Review of Systems form was filled out by the patient's family on 11/30/2021 and reviewed at the visit by Dr. Childs. It is significant for headache and otherwise negative except as documented in the HPI. The ROS form is scanned intothe medical record. Physical Exam: Vitals: 12/01/21 1057 BP: 112/74 General Exam: General physical examination including evaluation of appearance, HEENT exam, lungs, cardiac exam, extremities, and skin were unremarkable. Neurologic Exam: Patient was alert and oriented. Mental status was normal. Speech and language were normal. Cranial nerves II-XII including funduscopic examination were normal. Muscle strength was 5/5 in all muscle groups tested, light tactile sensation was normal, coordination with [id number]-grpo-wixbda testing, deeptendon reflexes, and gait were normal as well. Lab/Radiology/Diagnostic Review: No pertinent labs Assessment: (G43.009) Migraine without aura and without status migrainosus, not intractable (primary encounter diagnosis) Plan: ZOLMitriptan (Zomig) 5 mg nasal solution Discussion: Thong is a 16-year-old boy with headaches. He has features of tension headache which occurs chronically as well as episodic severe headache which has features of migraine. Maxalt was not helpful for headaches. Thong expressed some hesitance to take medication for treatment of headaches, citing notliking to take man-made pills but agreed to trial a different triptan for severe headaches if absolutely needed. We will trial zomig nasal spray 5 mg. Recommendations: 1. Zolmitriptan 5 mg nasal p.r.n. severe migraine headache 2. Provided dosing recommendations for [id number]-[id number] analgesics 3. Discussed for headache hygiene including proper sleep, diet, exercise 4. Recommended vitamin supplementation for headache prevention 5. Follow-up in 6 months documented in this encounter Plan of Treatment Not on file documented as of this encounter Visit Diagnoses Diagnosis Migraine without aura and without status migrainosus, not intractable- Primary documented in this encounter Discontinued Medications Medication Sig Discontinue Reason Start Date End Da te rizatriptan (MAXALT) 5 mg tablet TAKE 1 TABLET BY MOUTH ONCE NEEDED FOR MIGRAINE. MAY REPEAT DOSE IN 2 HOURS IF MIGRAINE IS UNRESOLVED. DO NOT EXCEED 30MG IN 24 HOURS 04/07/2021 11/30/2021 documented as of this encounter Care Teams Technology Project Manager Relationship Specialty Start Date End Date Beverly Louis MD [address] [place] [address] PCP - General 08/07/17 documented as of this encounter
--- OUTSIDE RECORDS SUMMARY | 2024-07-20 15:20 | XMS_ITS | Clinical Summary ---
Author Organization [facility] Address [address] [place] [address] Care Team Providers Care Amusement Ride Operator Name Role Phone Beverly Louis MD Primary Care Provider [phone] Allergies Active Allergy Reactions Criticality Noted Date [...] Verruca vulgaris 08/26/2017 Pain of hand 01/09/2013 Encounters Date Type Department Care Team Description 07/13/2024 9:15 AM TOOL AND DIE DESIGNER Office Visit [facility] Medical Group Convenient Care at [address] [address] Talita Ernandez NP Testicular pain, left (Primary Dx) from Last 3 Months Medical History Medical History Date Comments Headache Family History Medical History Relation Name Comments No Known Problems Father Migraines Maternal Grandmother Migraines Mother Relation Name Status Comments Father Maternal Grandmother Mother Social History Tobacco Use Types Packs/Day Years Used Date Smoking Tobacco: Never Smokeless Tobacco: Never Sex and Gender Information Value Date Recorded Sex Assigned at Not on file Legal Sex Male 1:41 AM TOOL AND DIE DESIGNER Gender Identity Not on file Sexual Orientation Not on file Obstetrics History Growth Chart Information Age Height Weight Mpauoq-cro-ryxh th Percentile BMI Percentile Head Circum Head Circum Percentile Date 18 years 76.4 kg (168 lb 8 oz) 2023 14 years 63.3 kg (139 lb 9.6 oz) 2019 12 years 164 cm (5' 4.57 ) 53.9 kg (118 lb 15 oz) 68.06%* 2017 12 years 163 cm (5' 4.17 ) 51.2 kg (112 lb 14 oz) 58.97%* 2017 12 years 163.5 cm (5' 4.37 ) 54.3 kg (119 lb 13.1 oz) 72.89%* 2017 12 years 162.5 cm (5' 3.98 ) 49.6 kg (109 lb 7.3 oz) 55.08%* 2017 11 years 160 cm (5' 2.99 ) 47.6 kg (104 lb 13.3 oz) 52.55%* 2017 7 years 129.5 cm (4' 3 ) 25 kg (55 lb 0.1 oz) 24.34%* 2012 7 years 24.5 kg (54 lb 0.2 oz) 2012 * [facility] (Boys, 2-20 Years) Last Filed Vital Signs Vital Sign Reading Time Taken Comments Blood Pressure 130/87 07/13/2024 9:05 AM TOOL AND DIE DESIGNER Pulse 71 07/13/2024 9:05 AM TOOL AND DIE DESIGNER Temperature 36.9 ??C (98.5 ??F) 07/13/2024 9:05 AM CS T Respiratory Rate 20 07/13/2024 9:05 AM TOOL AND DIE DESIGNER Oxygen Saturation 99% 07/13/2024 9:05 AM TOOL AND DIE DESIGNER Inhaled Oxygen Concentration - - Weight 76.4 kg (168 lb 8 oz) 07/13/2024 9:05 AM TOOL AND DIE DESIGNER Height 164 cm (5' 4.57 ) 02/17/2018 9:33 AM CDT Body Mass Index - - Plan of Treatment Health Maintenance Due Date Last Done Comments Depression Screening 2004 Hepatitis C Screening 2004 Meningococcal B Vaccine (1 of 2 - Patient Seeks Protection) 2020 Regular Well Visit/Exam 18-64 2022 Influenza Vaccine (#1) 2024 DTaP/Tdap/Td Vaccine (7 - Td or Tdap) 01/26/2026 01/27/2016, 03/03/2010, 04/17/2007, Additional history exists Pneumococcal vaccine <65 Completed 006, 03/05/2005, 01/12/2005, Additional history exists Varicella Vaccines Completed 03/03/2010, 10/22/2005 Meningococcal Vaccine Aged Out 01/27/2016 No santana emily eligible based on patient's age to complete this topic HPV Vaccines Completed 03/04/2018, 02/26/2017 Insurance [facility] CHO[facility] PLUS Care Teams Amusement Ride Operator Relationship Specialty Start Date End Date Beverly Louis MD [address] [place] [address] PCP - General 08/07/17
--- OUTSIDE RECORDS SUMMARY | 2024-07-20 15:20 | XMS_ITS | Encounter Summary ---
Author Organization [facility] Address [address] [facility] [address] [place] [address] Phone Care Team Providers Care Forensic Economist Name Role Phone Beverly Louis MD Primary Care Provider [phone] Encounter Details Date Type Department Care Team (Late st Contact Info) Description 08/09/2021 Telephone [facility] Pediatric Neurology [address] [facility] [address] [place] [address] Apollo Childs MD [address] [facility] [phone] [place] [address] Social History Tobacco Use Types Packs/Day Years Used Date Smoking Tobacco: Never Smokeless Tobacco: Never Sex and Gender Information Value Date Recorded Sex Assigned at Not on file Legal Sex Male 1:41 AM PRESIDENT ERGONOMIC CONSULTING Gender Identity Not on file Sexual Orientation Not on file documented as of this encounter Miscellaneous Notes * Telephone Encounter - Ro Wolf RMA - 08/09/2021 11:04 AM PRESIDENT ERGONOMIC CONSULTING LVM to see if Thong could come in at 230pm to to see Amadeo IDENT ERGONOMIC CONSULTING documented in this encounter Plan of Treatment Not on file documented as of this encounter Visit Diagnoses Not on filedocumented in this encounter Care Teams Forensic Economist Relationship Specialty Start Date End Date Beverly Louis MD [address] [place] [address] PCP - General 08/07/17 documented as of this encounter
--- OUTSIDE RECORDS SUMMARY | 2024-07-20 15:20 | XMS_ITS | Referral Summary ---
Author Organization [facility] Address [address] [place] [address] Care Team Providers Care Bilingual Sales Representative Name Role Phone Beverly Louis MD Primary Care Provider [phone] Source Comments [facility],non-owned Affiliates and Associated Physician Practices is amultiple site organization consisting of ambulatory clinics and hospital sitesin [place], [place], [place] and [place]. This disclosure is being madepursuant to the Care Everywhere program and may not contain all information available regarding this patient. Last updated 18.[facility] Allergies Active Allergy Reactions Criticality Noted Date [...] (130 lb 1.1 oz) 07/31/2019 2:48 PM PUBLIC HEALTH ADVISOR Height 171.6 cm (5' 7.56 ) 07/31/2019 2:48 PM CS T Body Mass Index 20.04 07/31/2019 2:48 PM PUBLIC HEALTH ADVISOR Body Mass Index Percentile 54.34% 07/31/2019 2:4 8 PM PUBLIC HEALTH ADVISOR Growth Chart: [facility] (Boys, 2-2 0 Years) Plan of Treatment Not on file Care Teams Bilingual Sales Representative Relationship Specialty Start Date End Date Beverly Louis MD [address] [place] [address] [address] [place] [address] PCP - General Pediatrics 06/25/16
--- OUTSIDE RECORDS SUMMARY | 2024-07-20 15:20 | XMS_ITS | Encounter Summary ---
Author Organization [facility] Address [address] [place] [address] Phone Care Team Providers Care Manager Risk Name Role Phone Beverly Louis MD Primary Care Provider [phone] Reason for Visit * Reason Comments Other Warts Encounter Details Date Type Department Care Team (Late st Contact Info) Description 02/17/2018 9:30 AM CDT Office Visit [facility] Dermatology [address] [facility] [address] [place] [address] Alycia Mccallum MD [address] [place] [address] Other viral warts (Primary Dx) Social History Tobacco Use Types Packs/Day Years Used Date Smoking Tobacco: Never Smokeless Tobacco: Never Sex and Gender Information Value Date Recorded Sex Assigned at Not on file Legal Sex Male 1:41 AM PLUMBER 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 Gender Identity Not on file Sexual Orientation Not on file documented as of this encounter Last Filed Vital Signs Vital Sign Reading Time Taken Comments Blood Pressure - - Pulse - - Temperature - - Respiratory Rate - - Oxygen Saturation - - Inhaled Oxygen Concentration - - Weight 53.9 kg (118 lb 15 oz) 02/17/2018 9:33 AM CDT Height 164 cm (5' 4.57 ) 02/17/2018 9:33 AM CDT Body Mass Index 20.06 02/17/2018 9:33 AM CDT Body Mass Index Percentile 68.06% 02/17/2018 9:3 3 AM CDT Growth Chart: CDC (Boys, 2-2 0 Years) documented in this encounter Progress Notes * Alycia Mccallum MD - 02/17/2018 9:30 AM CDT PATIENT NAME: THONG JENKINS : 2005 REGINALDO: 02/17/2018 Treatment #5 (3rd with Squaric acid) - Last treated on 01/13/18 for 1 VV lesions using intralesional alli antigen 0.2 mL - Location: L4 finger at PIP - No rash with medicine since last visit - Wart previously on thumb is completely resolved - Does not apply any treatment at home - Otherwise, no other complaints at this time Procedure: Destruction of Benign Lesion(s) Risk of pain and blistering were reviewed with the family. Verbal consent was obtained. Diagnosis: Verruca Vulgaris. Method: Squaric acid 5% with occlusion and LN2 cryotherapy for 10 seconds x 3 cycles Number of lesions: 2 Location(s): L4 PIP joint, R3 finger Complications: None. Blister care was reviewed with family. Start Salicylic acid at home starting in one week after blistering or rash subsides RTC 4-6 weeks SCRIBE ATTESTATION By signing my name, I, Robbin Apple, attest that this documentation has been prepared under the direction and in the presence of Dr. Mccallum. 02/17/18 8:30 AM ATTENDING ATTESTATION I personally performed the services described in this documentation, reviewed and edited the documentation which was dictated to the scribe in my presence, and it accurately records my words and actions. Electronically Signed: Alycia Mccallum MD Geospatial Imagery Intelligence Analyst of Dermatology 02/17/2018 documented in this encounter Plan of Treatment Not on file documented as of this encounter Visit Diagnoses Diagnosis Other viral warts- Primary documented in this encounter Care Teams Manager Risk Relationship Specialty Start Date End Date Beverly Louis MD [address] [place] [address] PCP - General 08/07/17 documented as of this encounter
--- OUTSIDE RECORDS SUMMARY | 2024-07-20 15:20 | XMS_ITS | Encounter Summary ---
Author Organization [facility] Facility Care Team Providers Care Printing Plate Maker Name Role Phone Unavailable Primary Care Provider Unavailabl e Encounter Details Date Type Department Care Team (Latest Contact Info) Description 06/11/2007 5:22 PM HOSPITALITY MANAGER - 06/11/2007 9:34 PM HOSPITALITY MANAGER Hospital Encounter [facility] Cellulitis and abscess of foot excluding toe Social History Tobacco Use Types Packs/Day Years Used Date Smoking Tobacco: Never Assessed Sex and Gender Information Value Date Recorded Sex Assigned at Not on file Legal Sex Male 1:41 AM HOSPITALITY MANAGER Gender Identity Not on file Sexual Orientation Not on file documented as of this encounter Plan of Treatment Not on file documented as of this encounter Visit Diagnoses Diagnosis Cellulitis and abscess of foot excluding toe Cellulitis and abscess of foot, except toes documented in this encounter
--- OUTSIDE RECORDS SUMMARY | 2024-07-20 15:20 | XMS_ITS | Patient Health Summary ---
Author Organization [facility] Address [address] [place] [address] Care Team Providers Care Maintenance Mechanic Technician Name Role Phone Bveerly Louis MD Primary Care Provider [phone] Note from [facility],non-owned Affiliates and Associated Physician Practices is amultiple site organization consisting of ambulatory clinics and hospital sitesin [place], [place], [place] and [place]. This disclosure is being madepursuant to the Care Everywhere program and may not contain all information available regarding this patient. Last updated 18.[facility] Allergies * Amoxicillin(Rash) -Medium Criticality Medications * Be aware that medications may not be up to date on this document. Alwaysverify current medications with the patient. * meloxicam (MOBIC) 15 MG tablet(Started 07/31/2019) Take 1 tablet by mouth once daily 3 refills by 07/30/2020 * meloxicam (MOBIC) 15 MG tablet(Started 07/31/2019) Take 1 tablet by mouth once daily 3 refills by 07/30/2020 Active Problems Problem Noted Date Diagnosed Date [...] (130 lb 1.1 oz) 07/31/2019 2:48 PM ELECTRICIAN SUPERVISOR Height 171.6 cm (5' 7.56 ) 07/31/2019 2:48 PM CS T Body Mass Index 20.04 07/31/2019 2:48 PM ELECTRICIAN SUPERVISOR Body Mass Index Percentile 54.34% 07/31/2019 2:4 8 PM ELECTRICIAN SUPERVISOR Growth Chart: CDC (Boys, 2-2 0 Years) Procedures * XR PELVIS 1 OR 2VW(Performed 07/31/2019) Performed for Chronic hip pain, right Results * XR AP PELVIS 1 VIEW (07/31/2019 2:58 PM ELECTRICIAN SUPERVISOR) Anatomical Region Laterality Modality Pelvis Radiographic Annika ging 07/31/2019 3:19 PM ELECTRICIAN SUPERVISOR Impressions 07/31/2019 3:22 PM ELECTRICIAN SUPERVISOR Normal radiographic examination of the pelvis. Reading Radiologist: NIKKO HUNTER MD on 07/31/2019 at 3:22 PM Narrative 07/31/2019 3:22 PM ELECTRICIAN SUPERVISOR CLINICAL HISTORY: Pain in right hip COMPARISON: [...] PM Terrell Patterson MD DIAGNOSTIC IMAGING O [facility] Care Teams Maintenance Mechanic Technician Relationship Specialty Start Date End Date Beverly Louis MD [facility] [address] [place] [address] PCP - General Pediatrics 06/25/16
--- OUTSIDE RECORDS SUMMARY | 2024-07-20 15:20 | XMS_ITS | Encounter Summary ---
Author Organization [facility] Address [address] [facility] [address] [place] [address] Phone Care Team Providers Care Senior Environmental Scientist Name Role Phone Beverly Louis MD Primary Care Provider [phone] Encounter Details Date Type Department Care Team (Late st Contact Info) Description 12/29/2021 Telephone [facility] Pediatric Neurology [address] [facility] [address] [place] [address] Lucila Childs MD [address] [facility] [phone] [place] [address] Social History Tobacco Use Types Packs/Day Years Used Date Smoking Tobacco: Never Smokeless Tobacco: Never Sex and Gender Information Value Date Recorded Sex Assigned at Not on file Legal Sex Male 1:41 AM BUSINESS SERVICES SPECIALIST SALES Gender Identity Not on file Sexual Orientation Not on file documented as of this encounter Miscellaneous Notes * Telephone Encounter - Ro Wolf RMA - 01/03/2022 8:28 AM CDT LVM that PA was approved and [facility] was notified via fax * Telephone Encounter - Cristal Davidson - 01/02/2022 10:31 AM CDT PA APPROVED [facility] NAME: ZOLMITRIPTAN 5 MG NASAL SPRAY DATES: 12/03/2021 UNTIL 01/02/2023 AUTH#: [id number] PHARMACY NOTIFIED: ANA VIA FAX * Telephone Encounter - Cristal Davidson - 01/02/2022 10:18 AM CDT NEVER RECEIVED PA REQ FROM PHARMACY. WILL ATTEMPT PA WITH INFORMATION I FOUND UNDER REGISTRATION. Medication name: ZOLMITRIPTAN 5 MG SOLUTION Kong: [id number] Status: PENDING RESPONSE Plan phone#/member #: [facility] ID [id number] DR LUCILA CHILDS * Telephone Encounter - Brittni Rothman BS - 01/01/2022 9:40 AM CDT Spoke with pharmacy they will fax PA request * Telephone Encounter - Cristal Davidson - 01/01/2022 9:19 AM CDT Please ask pharmacy to fax PA request. Thank you. Pending PA request from pharmacy. * Telephone Encounter - Brittni Rothman BS - 12/29/2021 5:06 PM CDT [facility], , called in regards to PA for Zomig nasal spray, left message on refill line, and left phone number for [employer] documented in this encounter Plan of Treatment Not on file documented as of this encounter Visit Diagnoses Not on filedocumented in this encounter Care Teams Senior Environmental Scientist Relationship Specialty Start Date End Date Beverly Louis MD [address] [place] [address] PCP - General 08/07/17 documented as of this encounter
--- OUTSIDE RECORDS SUMMARY | 2024-07-21 02:55 | XMS_ITS | Encounter Summary ---
Author Organization [facility] Address [address] [facility] [address] [place] [address] Phone Care Team Providers Care Junction Maker Name Role Phone Beverly Louis MD Primary Care Provider [phone] Encounter Details Date Type Department Care Team (Late st Contact Info) Description 12/29/2021 Telephone [facility] Pediatric Neurology [address] [facility] [address] [place] [address] Lucila Childs MD [address] [facility] [phone] [place] [address] Social History Tobacco Use Types Packs/Day Years Used Date Smoking Tobacco: Never Smokeless Tobacco: Never Sex and Gender Information Value Date Recorded Sex Assigned at Not on file Legal Sex Male 1:41 AM CORN POPPER Gender Identity Not on file Sexual Orientation [...] NASAL SPRAY DATES: 12/03/2021 UNTIL 01/02/2023 AUTH#: [id number] PHARMACY NOTIFIED: ANA VIA FAX * Telephone Encounter - Cristal Davidson - 01/02/2022 10:18 AM CDT NEVER RECEIVED PA REQ FROM PHARMACY. WILL ATTEMPT PA WITH INFORMATION I FOUND UNDER REGISTRATION. Medication name: ZOLMITRIPTAN 5 MG SOLUTION Kong: [id number] Status: PENDING RESPONSE Plan phone#/member #: [facility] ID [id number] DR LUCILA CHILDS * Telephone Encounter - Brittni Rothman BS - 01/01/2022 9:40 AM CDT Spoke with pharmacy they will fax PA request * Telephone Encounter - Cristal Davidson - 01/01/2022 9:19 AM CDT Please ask pharmacy to fax PA request. Thank you. Pending PA request from pharmacy. * Telephone Encounter - Brittni Rothman BS - 12/29/2021 5:06 PM CDT [facility], , called in regards to PA for Zomig nasal spray, left message on refill line, and left phone number for [employer] documented in this encounter Plan of Treatment Not on file documented as of this encounter Visit Diagnoses Not on filedocumented in this encounter Care Teams Junction Maker Relationship Specialty Start Date End Date Beverly Louis MD [address] [place] [address] PCP - General 08/07/17 documented as of this encounter
--- OUTSIDE RECORDS SUMMARY | 2024-07-21 02:55 | XMS_ITS | Clinical Summary ---
Author Organization [facility] Address [address] [place] [address] Care Team Providers Care Nursing Assoc Name Role Phone Beverly Louis MD Primary Care Provider [phone] Allergies Active Allergy Reactions Criticality Noted Date [...] Department Care Team Description 07/13/2024 9:15 AM OCCUPATIONAL THERAPIST PER DIEM Office Visit [facility] Medical Group Convenient Care at [address] [address] Talita Ernandez NP Testicular pain, [...] on file Legal Sex Male 1:41 AM OCCUPATIONAL THERAPIST PER DIEM Gender Identity Not on file Sexual Orientation Not on file Obstetrics History Growth Chart Information Age Height Weight Yuzzgg-tvy-fmqp th Percentile BMI Percentile Head Circum Head [...] kg (54 lb 0.2 oz) 2012 * [facility] (Boys, 2-20 Years) Last Filed Vital Signs Vital Sign Reading Time Taken Comments Blood Pressure 130/87 07/13/2024 9:05 AM OCCUPATIONAL THERAPIST PER DIEM Pulse 71 07/13/2024 9:05 AM OCCUPATIONAL THERAPIST PER DIEM Temperature 36.9 ??C (98.5 ??F) 07/13/2024 9:05 AM CS T Respiratory Rate 20 07/13/2024 9:05 AM OCCUPATIONAL THERAPIST PER DIEM Oxygen Saturation 99% 07/13/2024 9:05 AM OCCUPATIONAL THERAPIST PER DIEM Inhaled Oxygen Concentration - - Weight 76.4 kg (168 lb 8 oz) 07/13/2024 9:05 AM OCCUPATIONAL THERAPIST PER DIEM Height 164 cm (5' 4.57 ) 02/17/2018 [...] topic HPV Vaccines Completed 03/04/2018, 02/26/2017 Insurance [employer] CHOICE PLUS Care Teams Nursing Assoc Relationship Specialty Start Date End Date Beverly Louis MD [address] [place] [address] PCP - General 08/07/17
--- OUTSIDE RECORDS SUMMARY | 2024-07-21 02:55 | XMS_ITS | Encounter Summary ---
Author Organization [facility] Address [address] [place] [address] Phone Care Team Providers Care Information Technology Account Manager Name Role Phone Beverly Louis MD Primary Care Provider [phone] Reason for Visit * Reason Comments Follow-up Warts Encounter Details Date Type Department Care Team (Late st Contact Info) Description 01/13/2018 9:00 AM CDT Office Visit [facility] Dermatology [address] [facility] [address] [place] [address] Alycia Mccallum MD [address] [place], [place] [id number] Other viral warts (Primary Dx) Social History Tobacco Use Types Packs/Day Years Used Date Smoking Tobacco: Never Sex and Gender Information Value Date Recorded Sex Assigned at Not on file Legal Sex Male 1:41 AM STOCK PARTS FABRICATOR Gender Identity Not on file Sexual Orientation [...] Primary documented in this encounter Care Teams Information Technology Account Manager Relationship Specialty Start Date End Date Beverly Louis MD [address] [place] [address] PCP - General 08/07/17 documented as of this encounter
--- OUTSIDE RECORDS SUMMARY | 2024-07-21 02:55 | XMS_ITS | Encounter Summary ---
Author Organization [facility] Facility Care Team Providers Care Beauty Culturist Apprentice Name Role Phone Unavailable Primary Care Provider Unavailabl e Encounter Details Date Type Department Care Team (Latest Contact Info) Description 06/11/2007 5:22 PM MECHANICAL ENGINEERING TEACHER - 06/11/2007 9:34 PM MECHANICAL ENGINEERING TEACHER Hospital Encounter [facility] Cellulitis and abscess of foot excluding toe Social History Tobacco Use Types Packs/Day Years Used Date Smoking Tobacco: Never Assessed Sex and Gender Information Value Date Recorded Sex Assigned at Not on file Legal Sex Male 1:41 AM MECHANICAL ENGINEERING TEACHER Gender Identity Not on file Sexual Orientation Not on file documented as of this encounter Plan of Treatment Not on file documented as of this encounter Visit Diagnoses Diagnosis Cellulitis and abscess of foot excluding toe Cellulitis and abscess of foot, except toes documented in this encounter
--- OUTSIDE RECORDS SUMMARY | 2024-07-21 02:55 | XMS_ITS | Encounter Summary ---
Author Organization [facility] Address [address] [facility] [place] [address] Care Team Providers Care Candy Spreader Name Role Phone Beverly Louis MD Primary Care Provider [phone] Reason for Visit * Reason Onset Date Comments Appointment 08/17/2019 Encounter Details Date Type Department Care Team (Late st Contact Info) Description 08/17/2019 Telephone [facility] Pediatrics - Orthopedics [address] [place] [address] Terrell Patterson MD [address] [facility] [place] [address] Appointment Social History Tobacco Use Types Packs/Day Years Used Date Smoking Tobacco: Never Assessed Sex and Gender Information Value Date Recorded Sex Assigned at Not on file Gender Identity Not on file Sexual Orientation Not on file documented as of this encounter Plan of Treatment Not on file documented as of this encounter Visit Diagnoses Not on filedocumented in this encounter Care Teams Candy Spreader Relationship Specialty Start Date End Date Beverly Louis MD [address] [place] [address] [address] [place] [address] PCP - General Pediatrics 06/25/16 documented as of this encounter
--- OUTSIDE RECORDS SUMMARY | 2024-07-21 02:55 | XMS_ITS | Clinical Summary ---
Author Organization [facility] [employer] Address [address] [address] Care Team Providers Care Billiard Table Mechanic Name Role Phone Beverly Louis MD Primary Care Provider [phone] Source Comments [facility] [employer],non-owned Affiliates and Associated Physician Practices is amultiple site organization consisting of ambulatory clinics and hospital sitesin [place], [place], [place] and [place]. This disclosure is being madepursuant to the Care Everywhere program and may not contain all information available regarding this patient. Last updated 18.[facility] [employer] Allergies Active Allergy Reactions Criticality Noted Date [...] (130 lb 1.1 oz) 07/31/2019 2:48 PM HEAD BOYS TENNIS COACH Height 171.6 cm (5' 7.56 ) 07/31/2019 2:48 PM CS T Body Mass Index 20.04 07/31/2019 2:48 PM HEAD BOYS TENNIS COACH Body Mass Index Percentile 54.34% 07/31/2019 2:4 8 PM HEAD BOYS TENNIS COACH Growth Chart: CDC (Boys, 2-2 0 Years) [...] age to complete this topic Care Teams Billiard Table Mechanic Relationship Specialty Start Date End Date Beverly Louis MD [facility] [address] [place] [address] PCP - General Pediatrics 06/25/16
--- OUTSIDE RECORDS SUMMARY | 2024-07-21 02:55 | XMS_ITS | Referral Summary ---
Author Organization [facility] Address [address] [place] [address] Care Team Providers Care Geropsychologist Name Role Phone Beverly Louis MD Primary Care Provider [phone] Encounters Date Type Department Care Team Description 07/13/2024 9:15 AM EXCEL DEVELOPER Office Visit [facility] Medical Group Convenient Care at [address] [address] Talita Ernandez NP Testicular pain, [...] on file Legal Sex Male 1:41 AM EXCEL DEVELOPER Gender Identity Not on file Sexual Orientation Not on file Last Filed Vital Signs Vital Sign Reading Time Taken Comments Blood Pressure 130/87 07/13/2024 9:05 AM EXCEL DEVELOPER Pulse 71 07/13/2024 9:05 AM EXCEL DEVELOPER Temperature 36.9 ??C (98.5 ??F) 07/13/2024 9:05 AM CS T Respiratory Rate 20 07/13/2024 9:05 AM EXCEL DEVELOPER Oxygen Saturation 99% 07/13/2024 9:05 AM EXCEL DEVELOPER Inhaled Oxygen Concentration - - Weight 76.4 kg (168 lb 8 oz) 07/13/2024 9:05 AM EXCEL DEVELOPER Height 164 cm (5' 4.57 ) 02/17/2018 9:33 AM CDT Body Mass Index - - Plan of Treatment Not on file Insurance [facility] CHOICE PLUS Care Teams Geropsychologist Relationship Specialty Start Date End Date Beverly Louis MD [address] [place] [address] PCP - General 08/07/17
--- OUTSIDE RECORDS SUMMARY | 2024-07-21 02:55 | XMS_ITS | Encounter Summary ---
Author Organization [facility] Address [address] [facility] [address] [place] [address] Phone Care Team Providers Care Emergency Management Coordinator Name Role Phone Beverly Louis MD Primary Care Provider [phone] Reason for Visit * Consultation (Routine) - Closed Specialty Diagnoses / Procedures Referred By Huong burns Referred To Contact Pediatric Neurology Diagnoses Other headache syndrome Beverly Louis MD [address] [place] [address] Phone: tel: fax: [facility] Pediatric Neurology [address] [facility] [address] [place] [address] Phone: tel: fax: Referral ID Status Reason Start Date Expiration Date V isits Requested Visits Authorized [id number] Closed Specialty Services Required 10/05/2019 04/15/2021 1 1 Encounter Details Date Type Department Care Team (Late st Contact Info) Description 01/01/2020 2:00 PM CDT Office Visit [facility] Pediatric Neurology [address] [facility] [address] [place] [address] Apollo Childs MD [address] [facility] [phone] [place], [place] [id number] Migraine without aura and without status migrainosus, not intractable (Primary Dx); Other headache syndrome Social History Tobacco Use Types Packs/Day Years Used Date Smoking Tobacco: Never Smokeless Tobacco: Never Sex and Gender Information Value Date Recorded Sex Assigned at Not on file Legal Sex Male 1:41 AM BAND CUTTING MACHINE OPERATOR Gender Identity Not on file Sexual Orientation [...] you for referring Thong Parikh to the [facility] Pediatric Neurology Clinic forinitial evaluation [...] is going into the 10th grade at [employer]. He participates in wrestling. Review of Systems: A complete [facility] Child Neurology Review of Systems form was [...] light tactile sensation was normal, coordination with vqweoh-qysu-ivykgo testing, deeptendon reflexes, and gait were normal [...] of his headaches,I suggested dosing recommendations for oopm-shp-qhevvpv medications such as ibuprofen, acetaminophen, or caffeine containing preparations. For severe headaches which are consistent with migraines, I did provide a prescription for Maxalt 5 mg to take at the onset. Recommendations: 1. Maxalt 5 mg p.r.n. severe migraine headache 2. Provided dosing recommendations for luwg-jnn-dbzqxkv analgesics 3. Discussed for headache hygiene?? as [...] 12/31 documented in this encounter Care Teams Emergency Management Coordinator Relationship Specialty Start Date End Date Beverly Louis MD [address] [place] [address] PCP - General 08/07/17 documented as of this encounter
--- OUTSIDE RECORDS SUMMARY | 2024-07-21 02:55 | XMS_ITS | Encounter Summary ---
Author Organization [facility] Address [address] [place] [address] Phone Care Team Providers Care Casing Runner Name Role Phone Beverly Louis MD Primary Care Provider [phone] Reason for Visit * Reason Comments Other Warts Encounter Details Date Type Department Care Team (Late st Contact Info) Description 02/17/2018 9:30 AM CDT Office Visit [facility] Dermatology [address] [facility] [address] [place] [address] Alycia Mccallum MD [address] [place] [address] Other viral warts (Primary Dx) Social History Tobacco Use Types Packs/Day Years Used Date Smoking Tobacco: Never Smokeless Tobacco: Never Sex and Gender Information Value Date Recorded Sex Assigned at Not on file Legal Sex Male 1:41 AM DREDGE PUMPER Gender Identity Not on file Sexual Orientation [...] and actions. Electronically Signed: Alycia Mccallum MD Quick Service Technician of Dermatology 02/17/2018 documented in this encounter Plan of Treatment Not on file documented as of this encounter Visit Diagnoses Diagnosis Other viral warts- Primary documented in this encounter Care Teams Casing Runner Relationship Specialty Start Date End Date Beverly Louis MD [address] [place] [address] PCP - General 08/07/17 documented as of this encounter
--- OUTSIDE RECORDS SUMMARY | 2024-07-21 02:55 | XMS_ITS | Encounter Summary ---
Author Organization 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
--- OUTSIDE RECORDS SUMMARY | 2024-07-21 02:55 | XMS_ITS | Encounter Summary ---
Author Organization [facility] Address [address] [facility] [address] [place] [address] Phone Care Team Providers Care Production Tool Engineer Name Role Phone Beverly Louis MD Primary Care Provider [phone] Encounter Details Date Type Department Care Team (Late st Contact Info) Description 08/09/2021 Telephone [facility] Pediatric Neurology [address] [facility] [address] [place] [address] Apollo Childs MD [address] [facility] [phone] [place] [address] Social History Tobacco Use Types Packs/Day Years Used Date Smoking Tobacco: Never Smokeless Tobacco: Never Sex and Gender Information Value Date Recorded Sex Assigned at Not on file Legal Sex Male 1:41 AM TURN SUPERVISOR Gender Identity Not on file Sexual Orientation Not on file documented as of this encounter Miscellaneous Notes * Telephone Encounter - Ro Wolf RMA - 08/09/2021 11:04 AM TURN SUPERVISOR LVM to see if Thong could come in at 230pm to to see Amadeo SUPERVISOR documented in this encounter Plan of Treatment Not on file documented as of this encounter Visit Diagnoses Not on filedocumented in this encounter Care Teams Production Tool Engineer Relationship Specialty Start Date End Date Beverly Louis MD [address] [place] [address] PCP - General 08/07/17 documented as of this encounter
--- OUTSIDE RECORDS SUMMARY | 2024-07-21 02:55 | XMS_ITS | Encounter Summary ---
Author Organization [facility] Address [address] [facility] [address] [place] [address] Phone Care Team Providers Care Highballer Name Role Phone Beverly Louis MD Primary Care Provider [phone] Encounter Details Date Type Department Care Team (Late st Contact Info) Description 11/30/2021 2:00 PM CDT Office Visit [facility] Pediatric Neurology [address] [facility] [address] [place] [address] Apollo Childs MD [address] [facility] [phone] [place] [address] Migraine without aura and without status migrainosus, not intractable (Primary Dx) Social History Tobacco Use Types Packs/Day Years Used Date Smoking Tobacco: Never Smokeless Tobacco: Never Sex and Gender Information Value Date Recorded Sex Assigned at Not on file 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 He participates in wrestling. Review of Systems: A complete [facility] Child Neurology Review of Systems form [...] light tactile sensation was normal, coordination with wfyzzb-rabs-jonjmu testing, deeptendon reflexes, and gait were normal [...] migraine headache 2. Provided dosing recommendations for bsvb-mtu-bfqknws analgesics 3. Discussed for headache hygiene including [...] documented as of this encounter Care Teams Highballer Relationship Specialty Start Date End Date Beverly Louis MD [address] [place] [address] PCP - General 08/07/17 documented as of this encounter
--- OUTSIDE RECORDS SUMMARY | 2024-07-21 02:55 | XMS_ITS | Referral Summary ---
Author Organization [facility] [employer] Address [address] [place] [address] Care Team Providers Care Visually Impaired Teacher Name Role Phone Beverly Louis MD Primary Care Provider Source Comments [facility],non-owned Affiliates and Associated Physician Practices is amultiple site organization consisting of ambulatory clinics and hospital sitesin [place], [place], [place] and [place]. This disclosure is being madepursuant to the Care Everywhere program and may not contain all information available regarding this patient. Last updated 18.[facility] [employer] Allergies Active Allergy Reactions Criticality Noted Date [...] (130 lb 1.1 oz) 07/31/2019 2:48 PM GROUNDING ENGINEER Height 171.6 cm (5' 7.56 ) 07/31/2019 2:48 PM CS T Body Mass Index 20.04 07/31/2019 2:48 PM GROUNDING ENGINEER Body Mass Index Percentile 54.34% 07/31/2019 2:4 8 PM GROUNDING ENGINEER Growth Chart: [facility] (Boys, 2-2 0 Years) Plan of Treatment Not on file Care Teams Visually Impaired Teacher Relationship Specialty Start Date End Date Beverly Loius MD [address] [place] [address] [address] [place] [address] PCP - General Pediatrics 06/25/16
--- OUTSIDE RECORDS SUMMARY | 2024-07-21 02:55 | XMS_ITS | Encounter Summary ---
Author Organization [facility] Address [address] [place] [address] Care Team Providers Care Crop Duster Helper Name Role Phone Beverly Louis MD Primary Care Provider [phone] Reason for Visit * Reason Comments Testicle Pain Started this morning . Hurts more on left. Walking is painful. Testicles look normal. Does not notice any change in size. Encounter Details Date Type Department Care Team (Late st Contact Info) Description 07/13/2024 9:15 AM CLINICAL COORDINATOR Office Visit [facility] Medical Group Convenient Care at [address] [address] Talita Ernandez, CLINICAL BUSINESS ANALYST [address] [place] [address] [address] [place] [address] Testicular pain, left (Primary Dx) Social History Tobacco Use Types Packs/Day Years Used Date Smoking Tobacco: Never Smokeless Tobacco: Never Sex and Gender Information Value Date Recorded Sex Assigned at Not on file Legal Sex Male 1:41 AM CLINICAL COORDINATOR Gender Identity Not on file Sexual Orientation Not on file documented as of this encounter Last Filed Vital Signs Vital Sign Reading Time Taken Comments Blood Pressure 130/87 07/13/2024 9:05 AM CLINICAL COORDINATOR Pulse 71 07/13/2024 9:05 AM CLINICAL COORDINATOR Temperature 36.9 ??C (98.5 ??F) 07/13/2024 9:05 AM CS T Respiratory Rate 20 07/13/2024 9:05 AM CLINICAL COORDINATOR Oxygen Saturation 99% 07/13/2024 9:05 AM CLINICAL COORDINATOR Inhaled Oxygen Concentration - - Weight 76.4 kg (168 lb 8 oz) 07/13/2024 9:05 AM CLINICAL COORDINATOR Height - - Body Mass Index - - documented in this encounter Progress Notes * Talita Ernandez, CLINICAL BUSINESS ANALYST - 07/13/2024 9:15 AM CST Images from [...] rule this out. He has taken no iwfs-jub-cemllagpcnchvynysk for his symptoms. Review of Systems Constitutional: [...] not ill-appearing. HENT: Head: Normocephalic. Mouth/Throat: Lips: [place]. Cardiovascular: Rate and Rhythm: Normal rate. Pulmonary: [...] verbalized that he will drive himself to [facility], EMS declined. Diagnoses and all orders [...] office note has been partially dictated using [employer] software, and as a result portions of the record may have been created with this software. Occasional wrong-word or 'socsh-h-pwua' substitutions may have occurred due to the inherent limitations of voice recognition software. Read the chartcarefully and recognize, using context, where substitutions have occurred. Cosigned by Jett Cabrera MD at 07/13/2024 11:48 PM CLINICAL COORDINATOR ICAL COORDINATOR ICAL COORDINATOR documented in this encounter Plan of Treatment Not on file documented as of this encounter Visit Diagnoses Diagnosis Testicular pain, left- Primary Unspecified disorder of male genital organs documented in this encounter Care Teams Crop Duster Helper Relationship Specialty Start Date End Date Beverly Louis MD [address] [place] [address] PCP - General 08/07/17 documented as of this encounter
--- OUTSIDE RECORDS SUMMARY | 2024-07-21 02:55 | XMS_ITS | Encounter Summary ---
Author Organization [facility] Facility Care Team Providers Care Professional Driver Name Role Phone Unavailable Primary Care Provider [...] on file Legal Sex Male 1:41 AM CARPENTER MATE Gender Identity Not on file Sexual Orientation [...] ORDERABLES Renea l Result Performing Organization Address City/[facility] de Phone Number HISTORICAL RESULTS * Blood [...] ORDERABLES Renea l Result Performing Organization Address [facility] Co de Phone Number HISTORICAL RESULTS * Blood erythrocyte sedimentation rate (ESR) (01/01/2013 3:18 PM CDT) Erythrocyte sedimentation rate 18.0 0.0 - 20.0 mm/hr HISTORICAL RESULTS Blood specimen (specimen) 01/01/2013 3:18 PM CDT Historical Provider LAB BLOOD ORDERABLES Renea l Result Performing Organization Address [facility] de Phone Number HISTORICAL RESULTS * (ABNORMAL) [...] ORDERABLES Renea l Result Performing Organization Address [facility] Co de Phone Number HISTORICAL RESULTS documented in this encounter Visit Diagnoses Diagnosis Swelling of limb Open wound of hand Dog bite Unspecified place of occurrence documented in this encounter
--- OUTSIDE RECORDS SUMMARY | 2024-07-21 02:55 | XMS_ITS | Encounter Summary ---
Author Organization [facility] Address [address] [place] [address] Care Team Providers Care Safety And Occupational Health Manager Name Role Phone Beverly Louis MD Primary Care Provider Reason for Visit * Reason Comments Pain Groin Encounter Details Date Type Department Care Team (Late st Contact Info) Description 07/31/2019 2:45 PM STAMPER BLOCKER - 07/31/2019 2:52 PM STAMPER BLOCKER Hospital Encounter [facility] Pediatrics - Orthopedics [address] [place] [address] Terrell Patterson MD [facility] [facility] [place] [address] Discharge Disposition: Home or Self Care Social [...] (130 lb 1.1 oz) 07/31/2019 2:48 PM STAMPER BLOCKER Height 171.6 cm (5' 7.56 ) 07/31/2019 2:48 PM CS T Body Mass Index 20.04 07/31/2019 2:48 PM STAMPER BLOCKER Body Mass Index Percentile 54.34% 07/31/2019 2:4 8 PM STAMPER BLOCKER Growth Chart: [facility] (Boys, 2-2 0 Years) documented in this encounter Discharge Instructions * Patient Instructions* Terrell Patterson MD - 07/31/2019 3:37 PM STAMPER BLOCKER Images from the original note were not [...] [facility] Orthopaedic office contact information: [facility] [address] [place] [address] [facility] (option #3) [address] [facility], 2nd floor, [place] [address] [facility] [address] [place]. [address] [facility] [address] [facility] [place], [place] [address] Please do not hesitate to contact me with questions regarding him or any other patient in the future. Our clinical nurse, Hailee Carrasquillo, can be reached at . Sincerely, Terrell Patterson MD Team Physician for the [email or web address] PER BLOCKER documented in this encounter Progress Notes * Terrell Patterson MD - 07/31/2019 3:37 PM CST Images from the original note were not included. Terrell Patterson MD [facility] Orthopaedic Sports Medicine Adult and Pediatric Date of Clinic Visit: 07/31/[address] Beverly Louis MD ; Today we had the pleasure of seeing Thong Parikh in Orthopaedic Sports Medicine Clinic for evaluation of his right hip injury. Thong Parikh is a 13 year old male who has 3 weeks of right hip anterior pain with wrestling ([place], wrestling, freshman). The symptoms are activity- related and improved with rest. No fevers,chills, numbness, paresthesias or gross motor weakness. They have tried icing, anti-inflammatory medications, activity modification and rehab with systems trainer for their symptoms. SANE Score (0-100): [...] (171.6 cm) Wt 130 lb 1.1 oz (01264 g) BMI 20.04 kg/m2 The patient is [...] reached at . Sincerely, Terrell Patterson MD PER BLOCKER * Tressa Howe - 07/31/2019 2:49 PM CST - Reason for visit: groin pain - When & How it happened: 2 weeks ago, wrestling - Where & how was it treated: none - Pain level 7 out of 10 PER BLOCKER documented in this encounter Plan of Treatment Not on file documented as of this encounter Procedures Procedure Name Priority Date/Time Associated Diagnosis Comments XR PELVIS 1 OR 2VW Routine 07/31/2019 2: 58 PM STAMPER BLOCKER Chronic hip pain, right documented in this encounter Results * XR AP PELVIS 1 VIEW (07/31/2019 2:58 PM STAMPER BLOCKER) Anatomical Region Laterality Modality Pelvis Radiographic Annika ging 07/31/2019 3:19 PM STAMPER BLOCKER Impressions 07/31/2019 3:22 PM STAMPER BLOCKER Normal radiographic examination of the pelvis. Reading Radiologist: NIKKO HUNTER MD on 07/31/2019 at 3:22 PM Narrative 07/31/2019 3:22 PM STAMPER BLOCKER CLINICAL HISTORY: Pain in right hip COMPARISON: [...] right documented in this encounter Care Teams Safety And Occupational Health Manager Relationship Specialty Start Date End Date Beverly Louis MD [facility] [address] [place] [address] PCP - General Pediatrics 06/25/16 documented as of this encounter
--- OUTSIDE RECORDS SUMMARY | 2024-07-21 02:55 | XMS_ITS | Patient Health Summary ---
Author Organization [facility] Address [address] [place] [address] Care Team Providers Care Psychology Tech Name Role Phone Beverly Louis MD Primary Care Provider [phone] Note from [facility],non-owned Affiliates and Associated Physician Practices is amultiple site organization consisting of ambulatory clinics and hospital sitesin [place], [place], [place] and [place]. This disclosure is being madepursuant to the Care Everywhere program and may not contain all information available regarding this patient. Last updated 18.[facility] [employer] Allergies * Amoxicillin(Rash) -Medium Criticality Medications * [...] (130 lb 1.1 oz) 07/31/2019 2:48 PM PARTS CLEANER Height 171.6 cm (5' 7.56 ) 07/31/2019 2:48 PM CS T Body Mass Index 20.04 07/31/2019 2:48 PM PARTS CLEANER Body Mass Index Percentile 54.34% 07/31/2019 2:4 8 PM PARTS CLEANER Growth Chart: CDC (Boys, 2-2 0 Years) Procedures * XR PELVIS 1 OR 2VW(Performed 07/31/2019) Performed for Chronic hip pain, right Results * XR AP PELVIS 1 VIEW (07/31/2019 2:58 PM PARTS CLEANER) Anatomical Region Laterality Modality Pelvis Radiographic Annika ging 07/31/2019 3:19 PM PARTS CLEANER Impressions 07/31/2019 3:22 PM PARTS CLEANER Normal radiographic examination of the pelvis. Reading Radiologist: NIKKO HUNTER MD on 07/31/2019 at 3:22 PM Narrative 07/31/2019 3:22 PM PARTS CLEANER CLINICAL HISTORY: Pain in right hip COMPARISON: [...] PM Terrell Patterson MD DIAGNOSTIC IMAGING O [facility] Care Teams Psychology Tech Relationship Specialty Start Date End Date Beverly Louis MD [facility] [address] [place] [address] PCP - General Pediatrics 06/25/16
--- OUTSIDE RECORDS SUMMARY | 2024-07-21 02:55 | XMS_ITS | Encounter Summary ---
Author Organization [facility] Address [address] [place] [address] Care Team Providers Care Custom Stock Maker Name Role Phone Beverly Louis MD Primary Care Provider [phone] Encounter Details Date Type Department Care Team (Late st Contact Info) Description 07/31/2019 2:53 PM LEAN MANAGER - 07/31/2019 11:59 PM LEAN MANAGER Hospital Encounter [facility] - Radiology [address] [place] [address] [place] [address] [place] [address] [place] [address] Discharge Disposition: Home or Self Care Social [...] OR 2VW Routine 07/31/2019 2: 58 PM LEAN MANAGER Chronic hip pain, right documented in this encounter Results * XR AP PELVIS 1 VIEW (07/31/2019 2:58 PM LEAN MANAGER) Anatomical Region Laterality Modality Pelvis Radiographic Annika ging 07/31/2019 3:19 PM LEAN MANAGER Impressions 07/31/2019 3:22 PM LEAN MANAGER Normal radiographic examination of the pelvis. Reading Radiologist: NIKKO HUNTER MD on 07/31/2019 at 3:22 PM Narrative 07/31/2019 3:22 PM LEAN MANAGER CLINICAL HISTORY: Pain in right hip COMPARISON: [...] right documented in this encounter Care Teams Custom Stock Maker Relationship Specialty Start Date End Date Beverly Louis MD [address] [place] [address] [id number] [place] [id number] PCP - General Pediatrics 06/25/16 documented as of this encounter
== END 2024-07-13 12:17 | disposition home or self-care (01) ==
PROVIDERS: Emergency Medicine; Emergency Provider Nurse Practitioner Family; PCP Pediatrics
DX: N50.3 Cyst of epididymis (principal)
CPT/HCPCS: 76870; 81003; 93976; 99284